=== PATIENT | male | born 1985 | race Caucasian/White ===

== ENCOUNTER 2020-07-01 01:47 | Emergency (ER) | payer OTHER, SELFPAY ==
[2020-06-30 23:51] VITALS: BP 144/100; PULSE 78; RESP 18; TEMP 36.3; O2SAT 99
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
--- NOTE | ~2020-07-01 | CT_ITS ---
EXAMINATION: CT brain wo con DATE: 07/01/2020 01:49 INDICATION: Head injury. TECHNIQUE: Computed tomography (CT) of the head was performed without intravenous contrast. The mA wa s adjusted according to patient size. Iterative reconstruction technique was employed. The dose-lengt h product was 681.00 mGy-cm. COMPARISON: Head CT 08/31/2012 FINDINGS: There is no intracranial hemorrhage, acute infarction, or abnormal intracranial mass lesion . The ventricles are normal in size. The orbits are normal. There is mild mucosal thickening in the e thmoid sinuses. The mastoid air cells are normal. IMPRESSION: 1. Normal brain. Reviewed, dictated and finalized at location A. IMPRESSION: 1. Normal brain.
[2020-07-01] MEDS: KETOROLAC 30 MG/ML VIAL (*BKC) 60 MG IM (02:14)
[2020-07-01 02:20] VITALS: BP 149/105; PULSE 65; RESP 16; O2SAT 97
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
[2020-07-01 03:26] VITALS: BP 140/100; PULSE 65; RESP 16; O2SAT 97
== END 2020-07-01 03:27 | disposition home or self-care (01) ==
PROVIDERS: Emergency Provider Emergency Medicine; PCP Family Medicine
DX: S09.90XA Unspecified injury of head, initial encounter (principal); S16.1XXA Strain of muscle, fascia and tendon at neck level, initial encounter; Z87.891 Personal history of nicotine dependence; V47.5XXA Car driver injured in collision with fixed or stationary object in traffic accident, initial encounter
CPT/HCPCS: 70450; 72125; 96372; 99284; J1885

== ENCOUNTER 2021-10-08 07:07 | Emergency (ER) | payer OTHER, SELFPAY ==
--- NOTE | ~2021-10-08 | CT_ITS ---
EXAMINATION: CT brain wo con DATE: 10/08/2021 08:27 INDICATION: Light sensitivity. Headache and dizziness. TECHNIQUE: Computed tomography (CT) of the head was performed without intravenous contrast. The mA wa s adjusted according to patient size. Iterative reconstruction technique was employed. Exam dose: 60 5.33 mGy-cm total exam DLP. COMPARISON: 06/27/2020 CT brain FINDINGS: No intracranial mass lesion or hemorrhage or cerebrovascular accident. No midline shift or mass effect. Normal ventricular size. Normal mann-white matter differentiation. No subdural or epidur al hematoma is detected. No fracture or bone destruction of the cranial vault. There is a bony septum at the posterior aspect of the right maxillary sinus. There is minimal mucoper iosteal thickening of some of the ethmoid air cells. The mastoid air cells and included paranasal sinuses are otherwise unremarkable. IMPRESSION: No intracranial abnormality Reviewed, dictated and finalized at [facility]. Reviewed, dictated and finalized at location B. IMPRESSION: No intracranial abnormality
--- NOTE | ~2021-10-08 | XR_ITS ---
EXAMINATION: XR chest 1V portable DATE: 10/08/2021 08:49 INDICATION: Shortness of breath. TECHNIQUE: A single frontal view of the chest was obtained on 2 radiographs. COMPARISON: Chest 2 views 02/10/2018 FINDINGS: There is no pneumonia, pleural effusion, or pneumothorax. The heart size is normal. IMPRESSION: 1. No acute cardiopulmonary disease. Reviewed, dictated and finalized at location A.
[2021-10-08 07:11] VITALS: BP 175/89; PULSE 93; RESP 24; TEMP 36.7; O2SAT 100
--- NOTE | 2021-10-08 07:38 | ECG_ITS ---
Measurements Intervals [place] Rate: 77 P: 44 OK: 188 QRS: 2 QRSD: 122 T: 21 QT: 332 QTc: 376 Interpretive Statements SINUS RHYTHM NONSPECIFIC INTRAVENTRICULAR CONDUCTION DELAY [110+ ms QRS DURATION] BORDERLINE ECG NO PREVIOUS ECG AVAILABLE FOR COMPARISON Electronically Signed On 10-08-2021 14:10:05 CDT by Juan José Sethi M.D.
--- NOTE | 2021-10-08 08:07 | ED.HA ---
HPI - Headache General Chief Complaint: Headache Stated Complaint: dizzy, sob Time Seen by Provider: 10/08/21 08:06 History of Present Illness HPI Narrative: here at work felt lt headed and dizzy and stokes and bp up says h/o this with over exertion and had checked before, says stopped his propranolol around 3 months or so b/c says made him tired with is other meds for psyche his doc didn't tell him to stop no other cp/sob/f/uri/n/v/d but has gerd causes coughing fits adn had that last night. says all similar to previous issues no neuro chagnes Related Data Allergies Allergy/AdvReac Type Severity Reaction Status Date / Time No Known Allergies Allergy Verified 10/08/21 07:14 Review of Systems Constitutional: Comments: CONSTITUTIONAL: Denies fever, chills, or sweats. EYES: Denies visual changes, redness, or discharge. ENT: Denies rhinorrhea, congestion, sore throat, or otalgia. CARDIOVASCULAR: Denies chest pain, palpitations, or edema. RESPIRATORY: Denies cough or dyspnea. GASTROINTESTINAL: Denies abdominal pain, nausea, vomiting, or diarrhea. GENITOURINARY: Denies dysuria or hematuria. SKIN: Denies rash or itching. MUSCULOSKELETAL: Denies back pain, joint pain, or myalgia. NEUROLOGIC: has headache, no numbness, or weakness. bu dizzy and lt headed PSYCHIATRIC: Denies anxiety or depression. [facility] Family History Family History Father Family history of mental disorder Hypertension Family history of osteoarthritis Family history of elevated blood lipids Family history of cardiovascular disease Family history of hypothyroidism Grandparent Depression Hypertension Family history of elevated blood lipids Family history of cardiovascular disease Family history of liver disease Family history of arthritis Family history of chronic obstructive pulmonary disease Mother Hypertension Social History Social History Smoking status: Former smoker Alcohol intake: never Exam Const: Other: APPEARANCE: Well appearing, no pain in distress, well-nourished.obese EYES: PERRLA/EOMI, conjunctivae very clear. no nystagmus NOSE: Normal no drainage EARS:TMS clear Becky Siddiqui, with good light reflex. THROAT: Pharynx clear, no exudate. NECK: Supple. No adenopathy, no masses. RESPIRATORY: Airway patent, repsirations nonlabored. Clear to auscultation bilaterally, no rales, rhonchi, wheezing. CARDIOVASCULAR: Regular rate and rhythm without murmurs rubs or gallops. ABDOMINAL: Soft, nontender, nondistended, no hepatosplenomegally MUSCULOSKELETAl: Moves all extremities. Strenght/ROM intact, No edema, No calf tenderness. NEURO: Alert. Cranial nerves II through XII intact. Good gait. Good coordination SKIN:: Warm, dry. Normal Color PSYCHIATRIC: Normal affect/mood, normal interaction with parents. Course Reevaluation(s) Reevaluation #1: pt stokes better feeling fine good wiht plan for bp med and home, called dr tabares at 1000 to talk with him about pt stopping previous medication and wanting new suggestion he would recommend amlodipine and says his office will call pt for f/u appt Vital Signs Vital signs: Vital Signs Temperature 36.7 C 10/08/21 07:11 Pulse Rate 93 10/08/21 07:11 Respiratory Rate 24 H 10/08/21 07:11 Blood Pressure 175/89 H 10/08/21 07:11 Pulse Oximetry 100 10/08/21 07:11 Oxygen Delivery Room Air 10/08/21 07:11 Temperature 36.7 C 10/08/21 07:11 Pulse Rate 68 10/08/21 10:21 Respiratory Rate 17 10/08/21 10:21 Blood Pressure 142/96 H 10/08/21 09:00 Pulse Oximetry 92 10/08/21 10:21 Oxygen Delivery Room Air 10/08/21 07:11 MDM - Headache Lab Data Result diagrams: 10/08/21 08:21 10/08/21 08:21 Labs: Lab Results 10/08/21 10/08/21 10/08/21 Range/Units 08:21 08:21 08:21 WBC 9.7 (4.5-10.0) K/mm3 RBC 4.68 (4.6-6.20) M/mm3 Hgb 13.6 L
[2021-10-08 08:25] VITALS: BP 151/82; PULSE 74
[2021-10-08 08:26] VITALS: BP 157/100; BP 162/104; PULSE 79; PULSE 88
[2021-10-08 08:28] LABS: Basophils Percent Auto 0.3 % (0.2-1.2); Eosinophils Absolute Auto 0.2 K/mm3 (0-0.3); Eosinophils Percent Auto 1.6 % (0-4.4); Hemoglobin 13.6 g/dL (14.0-18.0); Immature Granulocyte Absolute 0.02 K/mm3 (0.00-0.031); Immature Granulocyte Percent A 0.2 % (0-0.5); Lymphocytes Percent Auto 19.7 % (18.3-44.2); Mean Corpuscular HGB Conc 31.6 g/dl (32-36); Mean Corpuscular Hemoglobin 29.1 pg (26-34); Mean Corpuscular Volume 91.9 fl (80-100); Mean Platelet Volume 10.9 fl (7.4-10.4); Monocytes Absolute Auto 0.8 K/mm3 (0.1-0.6); Monocytes Percent Auto 7.9 % (2.6-8.5); Neutrophils Absolute Auto 6.8 K/mm3 (1.3-6.7); Neutrophils Percent Auto 70.3 % (45.5-73.1); Platelet Count Result 242 k/mm3 (150-375); Red Blood Count 4.68 M/mm3 (4.6-6.20); Red Cell Distribution Width 12.3 % (11.5-14.5); White Blood Count 9.7 K/mm3 (4.5-10.0)
[2021-10-08 08:43] LABS: Alanine Aminotransferase 25 U/L (6-50); Albumin Level 4.2 g/dL (3.5-5.1); Alkaline Phosphatase 84 U/L (38-126); Anion Gap 8 mmol/L (8-16); Aspartate Amino Transferase 24 U/L (17-59); Bilirubin,Total 0.4 mg/dL (0.2-1.3); Blood Urea Nitrogen 18 mg/dL (9-20); Calcium 8.6 mg/dL (8.4-10.2); Carbon Dioxide 30 mmol/L (22-30); Chloride 101 mmol/L (98-107); Estimated CRCL calculation 188 ml/min; Estimated Glomerular Filt Rate > 60; Glucose 103 mg/dL (65-110); Potassium 4.3 mmol/L (3.4-5.0); Sodium 139 mmol/L (137-145)
[2021-10-08 08:44] LABS: INR 0.9; Prothrombin Time 12.2 Seconds (11.1-14.7)
[2021-10-08 08:45] LABS: Partial Thromboplastin Time 27.1 SECONDS (22.3-36.8)
[2021-10-08] MEDS: MORPHINE SULFATE (*CRX) 2 MG/ML INJ IV PUSH (08:52)
[2021-10-08] MEDS: ONDANSETRON INJ 4 MG/2 ML VIAL IV PUSH (08:52)
[2021-10-08 09:00] VITALS: BP 142/96; PULSE 75; RESP 18; O2SAT 95
[2021-10-08 10:21] VITALS: PULSE 68; RESP 17; O2SAT 92
[2021-10-08 10:25] LABS: Troponin I < 0.012 ng/mL (0.000-0.034)
[2021-10-08 10:41] VITALS: BP 132/84; PULSE 74; RESP 18; O2SAT 98
== END 2021-10-08 10:42 | disposition home or self-care (01) ==
PROVIDERS: Emergency Provider Emergency Medicine; PCP Family Medicine
DX: I10 Essential (primary) hypertension (principal); R51.9 Headache, unspecified; Z87.891 Personal history of nicotine dependence
CPT/HCPCS: 36415; 70450; 71045; 80053; 84484; 85025; 85610; 85730; 93005; 96374; 96375; 99284; J2270; J2405

== ENCOUNTER 2022-01-18 15:59 | Outpatient (CLI) | payer OTHER, SELFPAY ==
[2022-01-18 16:28] LABS: Anion Gap 13 mmol/L (8-16); Blood Urea Nitrogen 18 mg/dL (9-20); Calcium 8.6 mg/dL (8.4-10.2); Carbon Dioxide 28 mmol/L (22-30); Chloride 101 mmol/L (98-107); Cholesterol 158 mg/dL (0-200); Estimated Glomerular Filt Rate > 60; Glucose 119 mg/dL (65-110); HDL Direct 40 mg/dL; Potassium 4.2 mmol/L (3.4-5.0); Sodium 142 mmol/L (137-145); Triglycerides 111 mg/dL (<150)
[2022-01-18 16:31] LABS: Basophils Percent Auto 0.4 % (0.2-1.2); Eosinophils Absolute Auto 0.2 K/mm3 (0-0.3); Eosinophils Percent Auto 2.3 % (0-4.4); Hematocrit 42.5 % (42.0-52.0); Hemoglobin 13.4 g/dL (14.0-18.0); Immature Granulocyte Absolute 0.03 K/mm3 (0.00-0.031); Immature Granulocyte Percent A 0.3 % (0-0.5); Lymphocytes Absolute Auto 2.51 K/mm3 (0.9-3.2); Lymphocytes Percent Auto 25.9 % (18.3-44.2); Mean Corpuscular HGB Conc 31.5 g/dl (32-36); Mean Corpuscular Hemoglobin 28.6 pg (26-34); Mean Corpuscular Volume 90.8 fl (80-100); Monocytes Absolute Auto 1.2 K/mm3 (0.1-0.6); Monocytes Percent Auto 12.6 % (2.6-8.5); Neutrophils Absolute Auto 5.7 K/mm3 (1.3-6.7); Neutrophils Percent Auto 58.5 % (45.5-73.1); Platelet Count Result 269 k/mm3 (150-375); Red Blood Count 4.68 M/mm3 (4.6-6.20); Red Cell Distribution Width 12.5 % (11.5-14.5); White Blood Count 9.7 K/mm3 (4.5-10.0)
[2022-01-18 16:39] LABS: LDL Cholesterol Direct 81 mg/dL
[2022-01-18 16:40] LABS: Hemoglobin A1C 5.5 % (<5.7)
[2022-01-18 16:45] LABS: Free T4 Free Thyroxine 1.28 ng/mL (0.78-2.19)
[2022-01-18 16:58] LABS: Thyroid Stimulating Hormone 0.605 uIU/mL (0.465-4.680)
== END 2022-01-18 16:00 | disposition home or self-care (01) ==
PROVIDERS: PCP Family Medicine; Visit Provider Physician Assistant
DX: E66.01 Morbid (severe) obesity due to excess calories (principal); I10 Essential (primary) hypertension; R73.01 Impaired fasting glucose; Z79.899 Other long term (current) drug therapy; D64.9 Anemia, unspecified
CPT/HCPCS: 36415; 80048; 80061; 83036; 84439; 84443; 85025

== ENCOUNTER 2022-02-02 19:13 | Emergency (ER) | payer OTHER, SELFPAY ==
--- NOTE | ~2022-02-02 | XR_ITS ---
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 RESULT: Lines, tubes, and devices: None. Lungs and pleura: Clear. Cardiomediastinal silhouette: Stable. Other: No acute osseous or upper abdominal finding. IMPRESSION: No acute cardiopulmonary process. Reviewed, dictated and finalized at location K. 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
[2022-02-02 19:16] VITALS: BP 151/89; PULSE 94; RESP 16; TEMP 36.7; O2SAT 99
--- NOTE | 2022-02-02 20:35 | ED.URI ---
HPI - URI/Sore Throat General Chief Complaint: Upper Respiratory Infection Stated Complaint: cough Time Seen by Provider: 02/02/22 20:26 History of Present Illness HPI Narrative: Patient is a 36-year-old male with a history of hypertension, GERD presenting with URI symptoms. Patient states that he has had cold symptoms for the last 2 to 3 weeks. States that he has had a cough with a lot of nasal congestion. States that he often has a tickle in his throat. States that he has had an intermittent sore throat and has had a hoarse voice for the last several days. States that his and child also have URI symptoms. He denies chest pain, shortness of breath, headache, abdominal pain, nausea or vomiting, dysuria, leg swelling. Reports an episode of diarrhea earlier. Related Data Allergies Allergy/AdvReac Type Severity Reaction Status Date / Time No Known Allergies Allergy Verified 02/02/22 20:35 Review of Systems Review of Systems: All systems reviewed & are unremarkable except as noted in HPI and below PMFSH Family History Family History Father Family history of mental disorder Hypertension Family history of osteoarthritis Family history of elevated blood lipids Family history of cardiovascular disease Family history of hypothyroidism Grandparent Depression Hypertension Family history of elevated blood lipids Family history of cardiovascular disease Family history of liver disease Family history of arthritis Family history of chronic obstructive pulmonary disease Mother Hypertension Social History Social History Smoking status: Former smoker Alcohol intake: never Lack of Transportation: No Lack of Food: Never True Current Housing: I Have Housing Concerned About Future Housing: No Difficulty Paying Gas/Electric Bills: No Difficulty Paying for Meds: No Currently Unemployed: No Education: High School Diploma/GED Difficulty w/ Childcare or Family Care: No Exam Narrative: GENERAL: Well-appearing, well-nourished, and in no acute distress. HEAD: Normocephalic, atraumatic. EYES: PERRLA and EOMI. ENT: + Nasal congestion, no rhinorrhea or epistaxis. Mucous membranes moist. Posterior pharynx without erythema or exudates NECK: Supple. CHEST: Clear to auscultation. No respiratory distress. HEART: Regular rate and rhythm. No murmur heard. Normal peripheral pulses. ABDOMEN: Soft, nontender, nondistended, normal active bowel sounds. EXTREMITIES: Normal range of motion. No edema. SKIN: Warm, dry, no rash. NEURO: No focal deficits. Alert and oriented x3. PSYCH: Normal mood and affect. Course Vital Signs Vital signs: Vital Signs Temperature 98.0 F 02/02/22 19:16 Pulse Rate 94 02/02/22 19:16 Respiratory Rate 16 02/02/22 19:16 Blood Pressure 151/89 H 02/02/22 19:16 Pulse Oximetry 99 02/02/22 19:16 Temperature 98.0 F 02/02/22 19:16 Pulse Rate 94 02/02/22 19:16 Respiratory Rate 16 02/02/22 19:16 Blood Pressure 151/89 H 02/02/22 19:16 Pulse Oximetry 99 02/02/22 19:16 MDM - URI/Sore Throat MDM Narrative Medical decision making narrative: Patient is a 36-year-old male presenting with URI symptoms. Patient is hypertensive, otherwise vitals are within normal limits. Patient is well-appearing and in no acute distress. Exam is unremarkable. Will obtain chest x-ray and check him for COVID, flu, RSV. Chest x-ray shows no acute abnormalities. Patient is negative for COVID, flu, RSV. Patient likely has some other viral infection. Discussed appropriate supportive care. Will prescribe Tessalon Perles. Advised PCP follow-up. Appropriate return precautions given. Patient discharged in stable condition. Lab Data Labs: Lab Results 02/02/22 Range/Units 20:53 Influenza A (RT-PCR) Negative (Negative) Influenza B (RT-PCR) Negat
[2022-02-02 21:47] LABS: Influenza A QL RT-PCR Negative (Negative); Influenza B QL RT-PCR Negative (Negative); RSV RNA, RT-PCR Negative (Negative); SARS-CoV-2 RNA PCR Negative
[2022-02-02] MEDS: BENZONATATE 100 MG CAPSULE 200 MG PO (22:17)
== END 2022-02-02 22:23 | disposition home or self-care (01) ==
PROVIDERS: Emergency Provider Emergency Medicine; PCP Family Medicine
DX: B34.9 Viral infection, unspecified (principal); Z20.822 Contact with and (suspected) exposure to COVID-19; I10 Essential (primary) hypertension; K21.9 Gastro-esophageal reflux disease without esophagitis; Z87.891 Personal history of nicotine dependence
CPT/HCPCS: 71046; 87637; 99283; A9270

== ENCOUNTER 2022-05-27 08:28 | Emergency (ER) | payer OTHER, SELFPAY ==
--- NOTE | ~2022-05-27 | CT_ITS ---
EXAMINATION: CT abdomen pelvis wo con DATE: 05/27/2022 09:26 INDICATION: Fall. Right flank pain. Right hip and buttock pain, back pain. TECHNIQUE: Computed tomography (CT) of the abdomen and pelvis was performed without intravenous contr ast. Automated exposure control and iterative reconstruction technique were employed. Exam dose: 180 6.35 mGy-cm total exam DLP. COMPARISON: None. FINDINGS: There is minimal dependent right lower lobe atelectasis. The lung bases are otherwise clear . Normal heart size. No pericardial or pleural effusion. There is morbid obesity. The liver, gallbladder, spleen, pancreas, bile ducts and pancreatic duct, and adrenal glands and kidn eys are unremarkable. No urinary tract calculus or hydroureteronephrosis is detected. Normal caliber of the abdominal aorta. No intraperitoneal or retroperitoneal or pelvic mass lesion or adenopathy or ascites. Normal appendix. No bowel obstruction, bowel wall thickening, pneumatosis or intraperitoneal free air . The urinary bladder, prostate gland and seminal vesicles are unremarkable. Small fat-containing umbilical hernia. Small fat-containing left inguinal hernia. Bilateral L5 pars interarticularis defects with minimal grade 1 anterolisthesis of L5-S1. Moderate degenerative disease at L1-2. No suspicious osteolytic or osteoblastic lesions. IMPRESSION: Bilateral L5 pars interarticularis defects with grade 1 anterolisthesis at L5-S1 Reviewed, dictated and finalized at [facility]. Reviewed, dictated and finalized at location B. IMPRESSION: Bilateral L5 pars interarticularis defects with grade 1 anterolist hesis at L5-S1
[2022-05-27 08:34] VITALS: BP 155/91; PULSE 82; RESP 20; TEMP 36.3; O2SAT 97
--- NOTE | 2022-05-27 09:03 | ED.FALL ---
HPI - Fall General Chief Complaint: Fall Stated Complaint: fall - right side pain Time Seen by Provider: 05/27/22 08:43 History of Present Illness HPI Narrative: Patient states that he was at work when he fell back, landing mostly on his right side, he is endorsing pain worst on the right side, and worst around the right flank. Otherwise able to move all extremities and ambulate here. No focal numbness or weakness anywhere. Related Data Allergies Allergy/AdvReac Type Severity Reaction Status Date / Time No Known Allergies Allergy Verified 05/27/22 08:51 Review of Systems Review of Systems: CONST: No fever. HEENT: No sore throat C/V: No chest pain RESP: No cough GI: Reports right flank pain : No dysuria. M/S: Right shoulder, hip and leg pain. SKIN: No rash. NEURO: [No headache or focal numbness or weakness] PSYCH: [No depression] [facility] Family History Family History Father Family history of mental disorder Hypertension Family history of osteoarthritis Family history of elevated blood lipids Family history of cardiovascular disease Family history of hypothyroidism Grandparent Depression Hypertension Family history of elevated blood lipids Family history of cardiovascular disease Family history of liver disease Family history of arthritis Family history of chronic obstructive pulmonary disease Mother Hypertension Social History Social History Smoking status: Former smoker Alcohol intake: never Lack of Transportation: No Lack of Food: Never True Current Housing: I Have Housing Concerned About Future Housing: No Difficulty Paying Gas/Electric Bills: No Difficulty Paying for Meds: No Currently Unemployed: No Education: High School Diploma/GED Difficulty w/ Childcare or Family Care: No Exam Narrative: EXAMINATION OF ORGAN SYSTEMS/BODY AREAS: Constitutional: Vital signs per nursing GENERAL: Appears somewhat uncomfortable HEAD: Normal with no signs of head trauma. EYES: EOMI, conjunctiva normal ENT: Hearing grossly intact LUNGS: Nonlabored breathing. HEART: [Regular rate and rhythm] ABD: [Soft], [nontender to palpation] BACK: No midline tenderness, TTP R flank EXT: Normal range of motion, no obvious deformity SKIN: [No rashes or lesions.] NEURO: [Alert and oriented x 3. No gross focal sensory or strength deficits.] PSYCH: Normal affect Course Vital Signs Vital signs: Vital Signs Temperature 97.3 F L 05/27/22 08:34 Pulse Rate 82 05/27/22 08:34 Respiratory Rate 20 05/27/22 08:34 Blood Pressure 155/91 H 05/27/22 08:34 Pulse Oximetry 97 05/27/22 08:34 Oxygen Delivery Room Air 05/27/22 08:34 Temperature 97.3 F L 05/27/22 08:34 Pulse Rate 74 05/27/22 10:22 Respiratory Rate 18 05/27/22 10:22 Blood Pressure 132/89 05/27/22 10:22 Pulse Oximetry 98 05/27/22 10:22 Oxygen Delivery Room Air 05/27/22 08:34 MDM - Fall MDM Narrative Medical decision making narrative: 36-year-old male presenting after mechanical fall, endorsing pain to the right side, no obvious deformities or severe tenderness to any extremity, full range of motion. He does have tenderness to palpation to the right flank, but no midline tenderness. CT obtained to rule out fracture or intra abdominal injury. This is negative for acute abnormality, however he does have pars defect noted, I discussed this with the patient and I will give him follow-up to spine surgery, return precautions provided Discharge Plan Discharge Clinical Impression: Fall, Back pain Patient Disposition: Home, Self-Care Condition: Stable Instructions: Antibiotic Form Additional Instructions: Please follow up with your doctor; you can also take tylenol at home for pain and you can always come back to the ER if you feel worse. Prescriptions: No Action blayne
[2022-05-27] MEDS: ACETAMINOPHEN 500 MG TABLET 1000 MG PO (09:31)
[2022-05-27 09:59] VITALS: BP 129/87; PULSE 73; RESP 18; O2SAT 98
[2022-05-27 10:22] VITALS: BP 132/89; PULSE 74; RESP 18; O2SAT 98
== END 2022-05-27 10:24 | disposition home or self-care (01) ==
PROVIDERS: Emergency Provider Emergency Medicine; PCP Family Medicine
DX: M54.50 Low back pain, unspecified (principal); W19.XXXA Unspecified fall, initial encounter
CPT/HCPCS: 74176; 99284; A9270

== ENCOUNTER 2022-05-28 14:36 | Outpatient (CLI) | payer OTHER, SELFPAY ==
[2022-05-28 14:57] LABS: Basophils Percent Auto 0.4 % (0.2-1.2); Eosinophils Absolute Auto 0.2 K/mm3 (0-0.3); Eosinophils Percent Auto 1.9 % (0-4.4); Hematocrit 40.7 % (42.0-52.0); Hemoglobin 13.1 g/dL (14.0-18.0); Immature Granulocyte Absolute 0.03 K/mm3 (0.00-0.031); Immature Granulocyte Percent A 0.3 % (0-0.5); Lymphocytes Absolute Auto 2.09 K/mm3 (0.9-3.2); Lymphocytes Percent Auto 22.9 % (18.3-44.2); Mean Corpuscular HGB Conc 32.2 g/dl (32-36); Mean Corpuscular Hemoglobin 29.2 pg (26-34); Mean Corpuscular Volume 90.6 fl (80-100); Mean Platelet Volume 10.9 fl (7.4-10.4); Monocytes Absolute Auto 0.8 K/mm3 (0.1-0.6); Monocytes Percent Auto 8.4 % (2.6-8.5); Neutrophils Percent Auto 66.1 % (45.5-73.1); Platelet Count Result 235 k/mm3 (150-375); Red Blood Count 4.49 M/mm3 (4.6-6.20); Red Cell Distribution Width 12.1 % (11.5-14.5); White Blood Count 9.1 K/mm3 (4.5-10.0)
[2022-05-28 15:31] LABS: Iron 52 ug/dL (49-181)
[2022-05-28 15:41] LABS: Percent Iron Saturation 17 % (20-50)
== END 2022-05-28 14:37 | disposition home or self-care (01) ==
PROVIDERS: PCP Family Medicine; Visit Provider Physician Assistant
DX: D64.9 Anemia, unspecified (principal)
CPT/HCPCS: 36415; 82728; 83540; 83550; 85025

== ENCOUNTER 2023-03-06 06:56 | Outpatient (CLI) | payer OTHER, SELFPAY ==
[2023-03-06 07:33] LABS: Basophils Percent Auto 0.4 % (0.2-1.2); Eosinophils Absolute Auto 0.2 K/mm3 (0-0.3); Eosinophils Percent Auto 1.8 % (0-4.4); Hematocrit 45.9 % (42.0-52.0); Hemoglobin 14.7 g/dL (14.0-18.0); Immature Granulocyte Absolute 0.02 K/mm3 (0.00-0.031); Immature Granulocyte Percent A 0.2 % (0-0.5); Lymphocytes Absolute Auto 1.91 K/mm3 (0.9-3.2); Lymphocytes Percent Auto 20.7 % (18.3-44.2); Mean Corpuscular Hemoglobin 29.8 pg (26-34); Mean Corpuscular Volume 93.1 fl (80-100); Mean Platelet Volume 10.8 fl (7.4-10.4); Monocytes Absolute Auto 0.8 K/mm3 (0.1-0.6); Monocytes Percent Auto 8.1 % (2.6-8.5); Neutrophils Absolute Auto 6.3 K/mm3 (1.3-6.7); Neutrophils Percent Auto 68.8 % (45.5-73.1); Platelet Count Result 255 k/mm3 (150-375); Red Blood Count 4.93 M/mm3 (4.6-6.20); Red Cell Distribution Width 11.9 % (11.5-14.5); White Blood Count 9.2 K/mm3 (4.5-10.0)
[2023-03-06 07:45] LABS: Alanine Aminotransferase 25 U/L (6-50); Albumin Level 4.1 g/dL (3.5-5.1); Alkaline Phosphatase 81 U/L (38-126); Anion Gap 7 mmol/L (8-16); Aspartate Amino Transferase 22 U/L (17-59); Bilirubin,Total 0.5 mg/dL (0.2-1.3); Blood Urea Nitrogen 23 mg/dL (9-20); Calcium 9.1 mg/dL (8.4-10.2); Carbon Dioxide 29 mmol/L (22-30); Chloride 102 mmol/L (98-107); Cholesterol 152 mg/dL (0-200); Estimated Glomerular Filt Rate > 60; Glucose 100 mg/dL (65-110); HDL Direct 44 mg/dL; Potassium 4.7 mmol/L (3.4-5.0); Sodium 138 mmol/L (137-145); Triglycerides 82 mg/dL (<150)
[2023-03-06 07:55] LABS: LDL Cholesterol Direct 78 mg/dL
[2023-03-06 07:59] LABS: Iron 71 ug/dL (49-181)
[2023-03-06 08:08] LABS: Percent Iron Saturation 24 % (20-50)
[2023-03-06 10:53] LABS: Hemoglobin A1C 5.4 % (<5.7)
== END 2023-03-06 06:57 | disposition home or self-care (01) ==
LOC: ANHLAB 06:58
PROVIDERS: PCP Family Medicine; Visit Provider Physician Assistant
DX: D64.9 Anemia, unspecified (principal); E66.01 Morbid (severe) obesity due to excess calories; I10 Essential (primary) hypertension; K21.9 Gastro-esophageal reflux disease without esophagitis; R73.01 Impaired fasting glucose; F90.9 Attention-deficit hyperactivity disorder, unspecified type
CPT/HCPCS: 36415; 80053; 80061; 82728; 83036; 83540; 83550; 84443; 85025

== ENCOUNTER 2023-03-25 12:44 | Emergency (ER) | payer OTHER, SELFPAY ==
[2023-03-25 12:44] VITALS: BP 146/96; PULSE 83; RESP 20; TEMP 36.6; O2SAT 97
--- NOTE | 2023-03-25 12:54 | ED.URI ---
HPI - URI/Sore Throat General Chief Complaint: Upper Respiratory Infection Stated Complaint: covid + Time Seen by Provider: 03/25/23 12:49 History of Present Illness HPI Narrative: Pt here with son. Pt has runny nose, JORDAN, cough and aches. Pt covid test at home positive and wanted to verify. Pt denies fever. Related Data Allergies Allergy/AdvReac Type Severity Reaction Status Date / Time No Known Allergies Allergy Verified 01/21/23 13:25 Review of Systems Review of Systems: All systems reviewed & are unremarkable except as noted in HPI and below PMFSH Family History Family History Father Family history of mental disorder Hypertension Family history of osteoarthritis Family history of elevated blood lipids Family history of cardiovascular disease Family history of hypothyroidism Grandparent Depression Hypertension Family history of elevated blood lipids Family history of cardiovascular disease Family history of liver disease Family history of arthritis Family history of chronic obstructive pulmonary disease Mother Hypertension Social History Social History Smoking status: Former smoker Alcohol intake: never Lack of Transportation: No Lack of Food: Never True Current Housing: I Have Housing Concerned About Future Housing: No Difficulty Paying Gas/Electric Bills: No Difficulty Paying for Meds: No Currently Unemployed: No Education: High School Diploma/GED Difficulty w/ Childcare or Family Care: No Exam Const: General: healthy appearing and no acute distress Orientation/consciousness: patient oriented x3 Limitations: no limitations HENMT: Face/Nose/Sinus: Nasal discharge present Mouth: Yes Normal oral and palatal mucosa present Eyes: Pupils: Equal, round and reactive pupils present EOM: EOMs intact bilaterally Neck: Neck: normal visual inspection, no lymphadenopathy and no meningeal signs Resp: Effort & Inspection: normal respiratory effort Auscultation: clear to auscultation bilaterally Cardio: Rate: regular rate Rhythm: regular rhythm GI: GI Palp: Yes Soft to palpation Skin: General skin exam: normal color Wounds: no wounds Neuro: General: patient oriented x3, moves all extremities, no meningeal signs and no focal motor deficits Speech: normal speech Extrem: General: normal to inspection and no clubbing, cyanosis or edema Psych: Mental Status: mental status grossly normal Affect: normal affect Attitude: cooperative Course Vital Signs Vital signs: Vital Signs Temperature 97.9 F 03/25/23 12:44 Pulse Rate 83 03/25/23 12:44 Respiratory Rate 20 03/25/23 12:44 Blood Pressure 146/96 H 03/25/23 12:44 Pulse Oximetry 97 03/25/23 12:44 Oxygen Delivery Room Air 03/25/23 12:44 Temperature 97.9 F 03/25/23 13:45 Pulse Rate 83 03/25/23 13:45 Respiratory Rate 20 03/25/23 13:45 Blood Pressure 146/96 H 03/25/23 13:45 Pulse Oximetry 97 03/25/23 13:45 Oxygen Delivery Room Air 03/25/23 13:45 MDM - URI/Sore Throat Lab Data Labs: Lab Results 03/25/23 Range/Units 12:50 Influenza A (RT-PCR) Negative (Negative) Influenza B (RT-PCR) Negative (Negative) SARS-CoV-2 RNA (RT-PCR) Positive A (Negative) Discharge Plan Discharge Clinical Impression: COVID Patient Disposition: Home, Self-Care Condition: Stable Instructions: Antibiotic Form, COVID-19 (Coronavirus Disease 2019) (ED) Prescriptions: No Action methylphenidate HCl 27 mg tablet extended release 24hr 27 mg PO QAM Qty: 30 0RF Rx Instructions: January methylphenidate HCl 27 mg tablet extended release 24hr 27 mg PO QAM Qty: 30 0RF Rx Instructions: February methylphenidate HCl 27 mg tablet extended release 24hr 27 mg PO QAM Qty: 30 0RF Rx Instructions: March losartan 25 mg tab
[2023-03-25 13:32] LABS: SARS-CoV-2 RNA PCR Positive (Negative)
[2023-03-25 13:34] LABS: Influenza A QL RT-PCR Negative (Negative); Influenza B QL RT-PCR Negative (Negative)
[2023-03-25 13:45] VITALS: BP 146/96; PULSE 83; RESP 20; TEMP 36.6; O2SAT 97
== END 2023-03-25 13:45 | disposition home or self-care (01) ==
PROVIDERS: Emergency Provider Emergency Medicine; PCP Family Medicine
DX: U07.1 COVID-19 (principal); Z87.891 Personal history of nicotine dependence
CPT/HCPCS: 87636; 99283

== ENCOUNTER 2023-05-24 11:35 | Emergency (ER) | payer OTHER, SELFPAY ==
--- NOTE | ~2023-05-24 | CT_ITS ---
EXAMINATION: CT soft tissue neck w con DATE: 05/24/2023 13:24 INDICATION: Pain and swelling over the right ankle of the mandible TECHNIQUE: Computed tomography (CT) of the neck was performed with 75 mL Omnipaque-350 intravenous co ntrast. Automated exposure control and iterative reconstruction technique were employed. The dose-lucina gth product was 659.08 mGy-cm. COMPARISON: None FINDINGS: Orbits are normal. Visualized sinuses and mastoid aircells are well aerated and clear. Submandibular and parotid glands are symmetric. Thyroid gland is unremarkable. A couple enlarged level 2 jugular ch ain lymph nodes measuring 1.2 cm in maximal short axis diameter on the left and 1.6 cm on the right. Remaining cervical lymph nodes are unremarkable. No masses identified. Dystrophic calcification at t he right palatine tonsil. The vasculature is patent and normal in caliber. Airway is unremarkable. Gonzalez perior mediastinum is unremarkable. Lung apices are normal. IMPRESSION: 1. Normal appearing symmetric parotid glands at the region of concern. No other abnormal masses or fl uid collections identified. 2. Nonspecific bilateral mildly enlarged level 2 jugular chain lymph nodes measure up to 1.2 cm in sh ort axis diameter on the left and 1.6 cm on the right. Reviewed, dictated and finalized at location A. IMPRESSION: 1. Normal appearing symmetric parotid glands at the region of concern. No other abnormal masses or fluid collections identified. 2. Nonspecific bilateral mildly enlarged level 2 jugular chain lymph nodes daron ure up to 1.2 cm in short axis diameter on the left and 1.6 cm on the right.
[2023-05-24 11:43] VITALS: BP 160/101; PULSE 85; RESP 20; TEMP 37; O2SAT 98
--- NOTE | 2023-05-24 12:04 | ED.GENADULT ---
HPI - General Adult General Chief complaint: Unspecified Stated complaint: Right Facial Swelling Time Seen by Provider: 05/24/23 11:57 History of Present Illness HPI narrative: Patient is a 37 year old male with no PMH here with right sided facial swelling. Patient notes that 1 hour ago he was eating a rice crispy treat when he felt a sharp pain in his right lower jaw. He notes the pain subsided and he proceeded to eat a slim elder afterward without any issues. He has noted progressive swelling behind the angle of his mandible over the last hour. He denies difficulty breathing or swallowing. He denies any cracked teeth or dental pain. Patient does note that he has been struggling with respiratory illness over the last 2 weeks, the majority of the symptoms have resolved and he has a mild persistent sore throat which seems to be worsened when he cough. No fever or chills. Related Data Allergies Allergy/AdvReac Type Severity Reaction Status Date / Time No Known Allergies Allergy Verified 05/24/23 11:45 Review of Systems Review of Systems: All systems reviewed & are unremarkable except as noted in HPI and below PMFSH Family History Family History (Reviewed 01/21/23 @ 13:28 by Zuleima Mckeon [facility]) Father Family history of mental disorder Hypertension Family history of osteoarthritis Family history of elevated blood lipids Family history of cardiovascular disease Family history of hypothyroidism Grandparent Depression Hypertension Family history of elevated blood lipids Family history of cardiovascular disease Family history of liver disease Family history of arthritis Family history of chronic obstructive pulmonary disease Mother Hypertension Social History Social History (Reviewed 01/21/23 @ 13:28 by Zuleima Mckeon [facility]) Smoking status: Former smoker Alcohol intake: never Lack of Transportation: No Lack of Food: Never True Current Housing: I Have Housing Concerned About Future Housing: No Difficulty Paying Gas/Electric Bills: No Difficulty Paying for Meds: No Currently Unemployed: No Education: High School Diploma/GED Difficulty w/ Childcare or Family Care: No Exam Narrative: GENERAL: Well-appearing, well-nourished, and in no acute distress. HEAD: Normocephalic, atraumatic. EYES: PERRLA and EOMI. ENT: Nares clear. Mucous membranes moist. No posterior pharyngeal erythema, edema, exudates. No obvious dental fractures or dental caries, no dental abscesses. He has isolated swelling over the angle of the mandible, no overlying erythema or skin changes. Minimally tender to touch. No tenderness over the mastoid process. Auditory canal and TM normal bilaterally. No stridor. NECK: Supple. No lymphadenopathy. CHEST: Clear to auscultation. No respiratory distress. HEART: Regular rate and rhythm. Normal peripheral pulses. ABDOMEN: Soft, nontender, nondistended. EXTREMITIES: Normal range of motion. No edema. SKIN: Warm, dry, no rash. NEURO: No focal deficits. Alert and oriented x3. PSYCH: Normal mood and affect. Course Course Emergency Course: Chart review performed. Here with swelling below right ear. Triage vitals show HTN, otherwise normal. Patient seen evaluated, nontoxic appearing. He has some isolated swelling over the angle of mandible. Differentials include parotiditis, sialadenitis, less likely strep pharyngitis, dental caries, deep space infection. Will do basic labs, amylase, CT soft tissue neck. Patient agreeable to workup and plan. WBC elevated at 11.1, electrolytes normal, normal renal function, CRP minimally elevated at 1.5. Amylase elevated at 247. Pending CT and swabs. COVID, influenza, ICU negative. Positive for strep. CT shows lymphadenopathy, no obvious parotitis. Given elevated amylase, focal swelling will broaden antibiotic coverage with augmentin, which can cover both possible parotitis and strep. Lab work and imaging reviewed with patient. Advised close
[2023-05-24 12:12] VITALS: RESP 20
[2023-05-24 12:43] LABS: Basophils Percent Auto 0.4 % (0.2-1.2); Eosinophils Absolute Auto 0.2 K/mm3 (0-0.3); Eosinophils Percent Auto 1.4 % (0-4.4); Hematocrit 42.3 % (42.0-52.0); Hemoglobin 13.5 g/dL (14.0-18.0); Immature Granulocyte Absolute 0.04 K/mm3 (0.00-0.031); Immature Granulocyte Percent A 0.4 % (0-0.5); Lymphocytes Absolute Auto 2.41 K/mm3 (0.9-3.2); Lymphocytes Percent Auto 21.7 % (18.3-44.2); Mean Corpuscular HGB Conc 31.9 g/dl (32-36); Mean Corpuscular Hemoglobin 29.5 pg (26-34); Mean Corpuscular Volume 92.4 fl (80-100); Monocytes Absolute Auto 0.8 K/mm3 (0.1-0.6); Monocytes Percent Auto 7.6 % (2.6-8.5); Neutrophils Absolute Auto 7.6 K/mm3 (1.3-6.7); Neutrophils Percent Auto 68.5 % (45.5-73.1); Platelet Count Result 237 k/mm3 (150-375); Red Blood Count 4.58 M/mm3 (4.6-6.20); White Blood Count 11.1 K/mm3 (4.5-10.0)
[2023-05-24 12:58] LABS: Alanine Aminotransferase 24 U/L (6-50); Alkaline Phosphatase 81 U/L (38-126); Amylase 247 U/L (30-110); Anion Gap 4 mmol/L (8-16); Aspartate Amino Transferase 22 U/L (17-59); Bilirubin,Total 0.5 mg/dL (0.2-1.3); Blood Urea Nitrogen 16 mg/dL (9-20); CRP 1.5 mg/dL (<1.0); Carbon Dioxide 31 mmol/L (22-30); Chloride 102 mmol/L (98-107); Estimated CRCL calculation 165 ml/min; Estimated Glomerular Filt Rate > 60; Glucose 114 mg/dL (65-110); Potassium 3.9 mmol/L (3.4-5.0); Sodium 137 mmol/L (137-145)
[2023-05-24 13:05] LABS: Strep Group A RT-PCR DETECTED (Negative)
[2023-05-24 13:18] LABS: Influenza A QL RT-PCR Negative (Negative); Influenza B QL RT-PCR Negative (Negative); RSV RNA, RT-PCR Negative (Negative); SARS-CoV-2 RNA PCR Negative (Negative)
[2023-05-24] MEDS: AMOXICILLIN/CLAVULANATE K 875-125 MG TAB 1 TABLET PO (14:19)
[2023-05-24] MEDS: KETOROLAC 15 MG/ML VIAL (*BKC) IV PUSH (14:20)
[2023-05-24 14:25] VITALS: PULSE 91; RESP 19; O2SAT 100
== END 2023-05-24 14:27 | disposition home or self-care (01) ==
PROVIDERS: Emergency Provider Student in an Organized Health Care Education/Training Program; PCP Family Medicine
DX: R22.0 Localized swelling, mass and lump, head (principal); R74.8 Abnormal levels of other serum enzymes; Z20.822 Contact with and (suspected) exposure to COVID-19; Z87.891 Personal history of nicotine dependence
CPT/HCPCS: 36415; 70491; 80053; 82150; 85025; 86140; 87637; 87651; 96374; 99284; A9270; J1885; Q9967

== ENCOUNTER 2023-11-04 08:22 | Emergency (ER) | payer OTHER, SELFPAY ==
--- NOTE | ~2023-11-04 | CT_ITS ---
Non-contrast Head CT History: Headache COMPARISON: 10/08/2021 Technique: Axial non-contrast imaging of the brain was performed. Dose reduction technique was used on this scan by utilizing automated exposure control and iterative reconstruction technique. The dose -length product (DLP) was 605.33 mGy-cm. Findings: There is no evidence of intracranial hemorrhage, mass lesion, or acute infarct. Brain par enchyma appears normal. The ventricles and subarachnoid spaces are normal in size. The calvarium ap pears normal. The visualized paranasal sinuses and mastoid air cells are clear. Impression: No significant abnormality seen. Reviewed, dictated and finalized at location . Impression: No significant abnormality seen.
[2023-11-04 08:45] VITALS: BP 163/94; PULSE 78; RESP 18; TEMP 36.6; O2SAT 98
[2023-11-04 08:57] VITALS: BP 163/94; PULSE 71; RESP 15; O2SAT 99
[2023-11-04] MEDS: HYDROcodone/acetaminophen (*CRX) 5-325 MG TABLET 1 TAB PO (09:07)
--- NOTE | 2023-11-04 09:11 | ED.FALL ---
HPI - Fall General Chief Complaint: Fall Stated Complaint: fall last night, hit head JORDAN Time Seen by Provider: 11/04/23 08:43 History of Present Illness HPI Narrative: This is a 38-year-old male with no pertinent past medical history who presents to the emergency department with a chief complaint of a headache. Patient states he tripped and fell over a doctor yesterday and fell face 1st into a dresser. He is not sure if he lost consciousness but today woke up with a headache that is worsening and quality. Headache did not wake him up and is not the worst headache of his life. It is a dull ache and he does have a hematoma over his right frontal scalp. No active bleeding. Denies any nauseousness, vomiting, neck pain, vision changes, chest pain, shortness a breath, neuropathy, weakness or fatigue. He was otherwise in his normal state of health. No blood thinner use or history of seizure. Related Data Allergies Allergy/AdvReac Type Severity Reaction Status Date / Time No Known Allergies Allergy Verified 11/04/23 08:55 Review of Systems Review of Systems: As reviewed [facility] Family History Family History Father Family history of mental disorder Hypertension Family history of osteoarthritis Family history of elevated blood lipids Family history of cardiovascular disease Family history of hypothyroidism Grandparent Depression Hypertension Family history of elevated blood lipids Family history of cardiovascular disease Family history of liver disease Family history of arthritis Family history of chronic obstructive pulmonary disease Mother Hypertension Social History Social History Smoking status: Former smoker Alcohol intake: never Lack of Transportation: No Lack of Food: Never True Current Housing: I Have Housing Concerned About Future Housing: No Difficulty Paying Gas/Electric Bills: No Difficulty Paying for Meds: No Currently Unemployed: No Education: High School Diploma/GED Difficulty w/ Childcare or Family Care: No Exam Narrative: GENERAL: [Well-appearing, well-nourished, and in no acute distress.] HEAD: Normocephalic, right frontal scalp hematoma with no overlying bruising, approximately 2 x 3 cm EYES: [PERRLA and EOMI.] ENT: Nares clear, no rhinorrhea or epistaxis. Mucous membranes moist. NECK: Supple. Full range of motion of the head and neck, no midline or paraspinal muscle tenderness. CHEST: [Clear to auscultation. No respiratory distress.] HEART: [Regular rate and rhythm]. No murmur heard. [Normal peripheral pulses.] ABDOMEN: [Soft, nondistended], [nontender], [No rigidity or guarding] EXTREMITIES: Normal range of motion. [No edema.] SKIN: Warm, dry, no rash. NEURO: [No focal deficits]. Alert and oriented [x3.] PSYCH: [Normal mood and affect.] Course Vital Signs Vital signs: Vital Signs Temperature 36.6 C 11/04/23 08:45 Pulse Rate 78 11/04/23 08:45 Respiratory Rate 18 11/04/23 08:45 Blood Pressure 163/94 H 11/04/23 08:45 Pulse Oximetry 98 11/04/23 08:45 Oxygen Delivery Room Air 11/04/23 08:45 Temperature 36.6 C 11/04/23 08:45 Pulse Rate 62 11/04/23 10:06 Respiratory Rate 17 11/04/23 10:06 Blood Pressure 120/74 11/04/23 10:06 Pulse Oximetry 97 11/04/23 10:06 Oxygen Delivery Room Air 11/04/23 08:45 MDM - Fall MDM Narrative Medical decision making narrative: This is a 38-year-old male presenting after a closed head injury last night. He states he fell and tripped over a dog toy which was mechanical in nature and fell face 1st into a dresser. He has a small frontal scalp hematoma without any active bleeding or signs of skull fracture on exam. He has full range of motion of the head neck. No neurological complaints aside from a headache. Given his questionable loss of
[2023-11-04 10:06] VITALS: BP 120/74; PULSE 62; RESP 17; O2SAT 97
[2023-11-04 10:45] VITALS: BP 122/80; PULSE 68; RESP 15; TEMP 36.4; O2SAT 98
== END 2023-11-04 10:48 | disposition home or self-care (01) ==
PROVIDERS: Emergency Provider Student in an Organized Health Care Education/Training Program; PCP Family Medicine
DX: S06.0XAA Concussion with loss of consciousness status unknown, initial encounter (principal); Z87.891 Personal history of nicotine dependence; W01.0XXA Fall on same level from slipping, tripping and stumbling without subsequent striking against object, initial encounter
CPT/HCPCS: 70450; 99284; A9270

== ENCOUNTER 2023-12-26 22:13 | Emergency (ER) | payer OTHER, SELFPAY ==
--- NOTE | ~2023-12-26 | CT_ITS ---
CT brain wo con Ordering provider: Miguel Myers MD History: 38 years Male with . RIGHT FRONTAL HEADACHE X 2.5 HRS. . Comparison: November 04, 2023 Technique: CT of the head without contrast. Radiation reduction technique utilized.The dose-length product was 681 mGy-cm. FINDINGS: BRAIN PARENCHYMA AND CSF SPACES: No midline shift, mass effect or hemorrhage. The brain parenchyma a nd CSF spaces are otherwise normal. VISUALIZED PARANASAL SINUSES: Well aerated. MASTOIDS: Well aerated. BONES: The bones appear intact. SOFT TISSUES: Visualized nasopharynx is normal. Superficial soft tissues are normal. IMPRESSION: No acute intracranial findings. Reviewed, dictated and finalized at location A.
[2023-12-26 22:23] VITALS: BP 151/98; PULSE 71; RESP 18; TEMP 36.6; O2SAT 94
--- NOTE | 2023-12-26 23:07 | ED.HA ---
HPI - Headache General Chief Complaint: Headache Stated Complaint: headache Source: patient Mode of arrival: ambulatory Limitations: no limitations History of Present Illness HPI Narrative: Patient is 38 years old white male came to the ED by car with his from home complaining of right frontal headache while laying down watching TV started 2-1/2 hour ago, associated with clogged feeling at the right nostril, gets better when he blows his nose, worse when he move around. he denies any fever, chills, nausea, vomiting, chest pain, shortness of breath or neck pain. History of ADHD, GERD, left lower leg pain on gabapentin. He report that his nose was running early but not anymore right now. Related Data Allergies Allergy/AdvReac Type Severity Reaction Status Date / Time No Known Allergies Allergy Verified 11/04/23 08:55 Review of Systems Review of Systems: All systems reviewed & are unremarkable except as noted in HPI and below PMFSH Family History Family History Father Family history of mental disorder Hypertension Family history of osteoarthritis Family history of elevated blood lipids Family history of cardiovascular disease Family history of hypothyroidism Grandparent Depression Hypertension Family history of elevated blood lipids Family history of cardiovascular disease Family history of liver disease Family history of arthritis Family history of chronic obstructive pulmonary disease Mother Hypertension Social History Social History Smoking status: Former smoker Alcohol intake: never Lack of Transportation: No Lack of Food: Never True Current Housing: I Have Housing Concerned About Future Housing: No Difficulty Paying Gas/Electric Bills: No Difficulty Paying for Meds: No Currently Unemployed: No Education: High School Diploma/GED Difficulty w/ Childcare or Family Care: No Exam Narrative: General appearance: Well-developed, well-nourished , does not look in pain or distress Skin: Normal color Head: Normocephalic, nontraumatic Eyes: Clear conjunctiva ENT: Oropharynx normal, ears normal, nose normal Neck: Supple, nontender Chest and respiratory: Airway patent, no respiratory distress, no accessory muscle use Heart: Regular rate/rhythm Neurologic: Alert and oriented ?3, 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, no gross motor deficit Course Vital Signs Vital signs: Vital Signs Temperature 36.6 C 12/26/23 22:23 Pulse Rate 71 12/26/23 22:23 Respiratory Rate 18 12/26/23 22:23 Blood Pressure 151/98 H 12/26/23 22:23 Pulse Oximetry 94 12/26/23 22:23 Oxygen Delivery Room Air 12/26/23 22:23 Temperature 36.6 C 12/26/23 22:23 Pulse Rate 71 12/26/23 22:23 Respiratory Rate 18 12/26/23 22:23 Blood Pressure 172/85 H 12/27/23 00:09 Pulse Oximetry 94 12/26/23 22:23 Oxygen Delivery Room Air 12/26/23 22:23 MDM - Headache MDM Narrative Medical decision making narrative: patient came with right frontal headache while lying down watching TV, better with blowing his nose associated with upper respiratory viral infection symptoms. Vital signs are stable Physical examination is unremarkable, patient looks comfortable, talks nonstop. Differential diagnosis include upper respiratory viral infection, sinusitis, stress related, Blood workup today showed normal WBC, normal electrolytes, CT head without contrast showed no acute abnormalities. Patient symptom resolved after IV fluid, Toradol IV, Benadryl IV, Reglan IV and Tylenol p.o. The pt was discharged to home.
--- NOTE | 2023-12-26 23:16 | PC.NURSE ---
report to fabiola oliver. all questions answered.
[2023-12-26 23:32] LABS: Basophils Absolute Auto 0.04 K/mm3 (0.00-0.10); Basophils Percent Auto 0.4 % (0.0-1.0); Eosinophils Absolute Auto 0.14 K/mm3 (0.02-0.50); Eosinophils Percent Auto 1.5 % (1.0-6.0); Hematocrit 40.8 % (40.0-54.0); Hemoglobin 13.1 g/dL (14.0-18.0); Immature Granulocyte Absolute 0.03 K/mm3 (0.00-0.00); Immature Granulocyte Percent A 0.3 % (0.0-0.0); Lymphocytes Absolute Auto 1.87 K/mm3 (1.10-4.50); Mean Corpuscular HGB Conc 32.1 g/dL (32-36); Mean Corpuscular Hemoglobin 29.1 pg (27.0-31.0); Mean Corpuscular Volume 90.7 fL (78.0-102.0); Mean Platelet Volume 10.6 fl (8.7-11.0); Monocytes Absolute Auto 0.99 K/mm3 (0.10-0.90); Monocytes Percent Auto 10.6 % (2.0-11.0); Neutrophils Percent Auto 67.2 % (50.0-70.0); Platelet Count Result 213 K/mm3 (150-420); White Blood Count 9.4 K/mm3 (4.8-10.8)
[2023-12-26] MEDS: ACETAMINOPHEN 500 MG TABLET 1000 MG PO (23:40)
[2023-12-26 23:47] LABS: Alanine Aminotransferase 19 U/L (16-63); Albumin Level 3.3 g/dL (3.4-5.0); Alkaline Phosphatase 84 U/L (46-116); Anion Gap 8 mmol/L (4-12); Aspartate Amino Transferase 13 U/L (15-37); Bilirubin,Total 0.5 mg/dL (0.00-1.00); Blood Urea Nitrogen 25 mg/dL (7-18); Calcium 8.6 mg/dL (8.5-10.1); Carbon Dioxide 29 mmol/L (21-32); Chloride 103 mmol/L (98-108); Estimated CRCL calculation 164 ml/min; Estimated Glomerular Filt Rate > 60; Glucose 114 mg/dL (70-99); Osmolality Calculated 295 mOsm/kg (285-295); Potassium 4.1 mmol/L (3.5-5.1); Sodium 140 mmol/L (136-145); Total Protein 7.2 g/dL (6.4-8.2)
[2023-12-26] MEDS: diphenhydrAMINE HCl INJ 50 MG/ML VIAL IV PUSH (23:47)
[2023-12-26] MEDS: SODIUM CHLORIDE 0.9% IV 1,000 ML 999 ML IV CONT (23:47)
[2023-12-26] MEDS: METOCLOPRAMIDE HCL INJ 10 MG/2 ML VIAL IV PUSH (23:48)
[2023-12-26] MEDS: KETOROLAC 30 MG/ML VIAL (*BKC) IV PUSH (23:49)
[2023-12-27 00:08] LABS: Influenza A QL RT-PCR Negative (Negative); Influenza B QL RT-PCR Negative (Negative); RSV RNA, RT-PCR Negative (Negative); SARS-CoV-2 RNA PCR Negative (Negative)
[2023-12-27 00:09] VITALS: BP 172/85
[2023-12-27 00:44] VITALS: BP 128/88; PULSE 60; RESP 20; O2SAT 95
[2023-12-27 01:00] VITALS: BP 135/75; PULSE 68; RESP 20; TEMP 36.6; O2SAT 95
== END 2023-12-27 01:00 | disposition home or self-care (01) ==
PROVIDERS: Emergency Provider Emergency Medicine; PCP Family Medicine
DX: J06.9 Acute upper respiratory infection, unspecified (principal); R51.9 Headache, unspecified; B97.89 Other viral agents as the cause of diseases classified elsewhere; Z87.891 Personal history of nicotine dependence; Z20.822 Contact with and (suspected) exposure to COVID-19
CPT/HCPCS: 36415; 70450; 80053; 85025; 87637; 96361; 96374; 96375; 99284; J1200; J1885; J2765; J7030

== ENCOUNTER 2024-04-12 15:12 | Emergency (ER) | payer OTHER, SELFPAY ==
--- NOTE | ~2024-04-12 | XR_ITS ---
EXAM: XR knee RT 3V DATE: 04/12/2024 16:41 HISTORY: R knee pain without injury . COMPARISON: None available. FINDINGS: Normal mineralization. No fracture or dislocation. No lytic or blastic lesion. Mild medial joint space narrowing. Small-volume joint fluid. No erosion or periosteal change. Soft tissues withi n normal limits. IMPRESSION: No acute osseous finding in the right knee. Reviewed, dictated and finalized at location K. 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
[2024-04-12 15:47] VITALS: BP 138/83; PULSE 82; RESP 20; TEMP 36.4; O2SAT 99
--- NOTE | 2024-04-12 17:33 | ED_ITS ---
HPI - Extremity Injury (Lower) General Chief Complaint: Extremity Injury, Lower Stated Complaint: right knee pain Time Seen by Provider: 04/12/24 17:10 Source: patient Mode of arrival: ambulatory Limitations: no limitations History of Present Illness HPI Narrative: 38-year-old otherwise healthy here with the complaints of of right knee pain for past 3 days patient states that he woke up with severe pain. He denies any trauma. Patient states going down the stairs or up the stairs is extremely painful. Related Data Allergies Allergy/AdvReac Type Severity Reaction Status Date / Time No Known Allergies Allergy Verified 01/29/24 14:23 Review of Systems Review of Systems: All systems reviewed & are unremarkable except as noted in HPI and below Constitutional: Constitutional: Reports no additional constitutional co mplaints Eyes: Eyes: Reports no additional eye complaints ENT: Reports system reviewed and no additional complaints, except as documented Cardiovascular: Cardiovascular: Reports no additional cardiovascular complaints Respiratory: Respiratory: Reports no additional respiratory complaints Gastrointestinal: Gastrointestinal: Reports no additional gastrointestinal complaints Musculoskeletal: Musculoskeletal: Reports as per HPI Neurologic: Reports system reviewed and no additional complaints, except as documented [facility] Family History Family History Father Family history of mental disorder Hypertension Family history of osteoarthritis Family history of elevated blood lipids Family history of cardiovascular disease Family history of hypothyroidism Grandparent Depression Hypertension Family history of elevated blood lipids Family history of cardiovascular disease Family history of liver disease Family history of arthritis Family history of chronic obstructive pulmonary disease Mother Hypertension Social History Social History Smoking status: Former smoker Alcohol intake: never Lack of Transportation: No Lack of Food: Never True Current Housing: I Have Housing Concerned About Future Housing: No Difficulty Paying Gas/Electric Bills: No Difficulty Paying for Meds: No Currently Unemployed: No Education: High School Diploma/GED Difficulty w/ Childcare or Family Care: No Exam Narrative: GENERAL: Well-appearing, morbidly obese, and in no acute distress. HEAD: Normocephalic, atraumatic. EYES: PERRLA and EOMI. NECK: Supple. CHEST: Clear to auscultation. No respiratory distress. HEART: Regular rate and rhythm. No murmur heard. Normal peripheral pulses EXTREMITIES: Normal range of motion. No edema. Examination of the right knee shows no joint effusion or deformity. Painful ROM SKIN: Warm, dry, no rash. NEURO: No focal deficits. Alert and oriented x3. PSYCH: Normal mood and affect. Course Course Emergency Course: Inform patient about his x-ray findings. Recommended him to use knee immobilizer, continue naproxen, follow-up with orthopedic doctor on patient is Vital Signs Vital signs: Vital Signs Temperature 36.4 C L 04/12/24 15:47 Pulse Rate 82 04/12/24 15:47 Respiratory Rate 20 04/12/24 15:47 Blood Pressure 138/83 04/12/24 15:47 Pulse Oximetry 99 04/12/24 15:47 Temperature 36.4 C L 04/12/24 15:47 Pulse Rate 82 04/12/24 15:47 Respiratory Rate 20 04/12/24 15:47 Blood Pressure 138/83 04/12/24 15:47 Pulse Oximetry 99 04/12/24 15:47 MDM - Extremity Injury (Lower) Imaging Data Radiologist's impression: ITS Impressions Knee X-Ray 04/12/24 16:43 IMPRESSION: No acute osseous finding in the right knee. Discharge Plan Discharge Clinical Impression: Knee joint pain Qualifiers: Laterality: right Qualified Code(s): M25.561 - Pain in right knee Patient Disposition: Home, Self-Care Condition: Stable Instructions: Antibiotic Form Additional Instructions: Continue home medication, use the immobilizer when ambulating. Patient Language: Greek Prescriptions: No Action naproxen 500 mg tablet See Rx Instructions .ROUTE .COMPLEX Qty: 180 3RF Dose Instruction: Take 1 tablet by mouth twice daily as needed for pain Rx Instructions: Take 1 tablet by mouth twice daily as needed for pain pantoprazole 40 mg tablet,delayed release (DR/EC) 40 mg PO QAM Qty: 90 1RF gabapentin 100 mg capsule 100 mg PO BID Qty: 60 1RF Rx Instructions: start the first week once daily at bedtime methylphenidate HCl 27 mg tablet extended release 24hr 27 mg PO QAM Qty: 30 0RF Rx Instructions: February methylphenidate HCl 27 mg tablet extended release 24hr 27 mg PO QAM Qty: 30 0RF Rx Instructions: March methylphenidate HCl 27 mg tablet extended release 24hr 27 mg PO QAM Qty: 30 0RF Rx Instructions: January Follow-up/Referrals: Silvio Shell MD [Primary Care Provider] - Yomi Foote MD [Physician] - Time of Disposition: 17:38
== END 2024-04-12 17:56 | disposition home or self-care (01) ==
PROVIDERS: Emergency Provider Family Medicine; PCP Family Medicine
DX: M25.561 Pain in right knee (principal); Z87.891 Personal history of nicotine dependence
CPT/HCPCS: 73562; 99283

== ENCOUNTER 2024-05-07 07:43 | Outpatient (CLI) | payer OTHER, SELFPAY ==
--- NOTE | 2024-05-07 08:29 | PCCARD ---
CHANGED NUC MED TREADMILL STRESS TO NON WALKING LEXISCAN DUE TO TREADMILL WEIGHT LIMIT OF 350 LBS - PATIENT WS OVER THE WEIGHT LIMIT
== END 2024-05-07 07:44 | disposition home or self-care (01) ==
LOC: ANHCARD 07:44
PROVIDERS: PCP Family Medicine; Visit Provider Nurse Practitioner Family
DX: R06.02 Shortness of breath (principal); Z82.49 Family history of ischemic heart disease and other diseases of the circulatory system
CPT/HCPCS: 78452; 93017; A9502; J2785

== ENCOUNTER 2024-08-14 14:11 | Emergency (ER) | payer OTHER, SELFPAY ==
--- NOTE | 2024-08-14 14:25 | ED.GENADULT ---
HPI - General Adult General Chief complaint: Unspecified Stated complaint: facial pain Time Seen by Provider: 08/14/24 14:15 History of Present Illness HPI narrative: 38-year-old male with history of hypertension, KERVIN, obesity presents to emergency department with right-sided facial pain since 9:00 p.m. last night. Patient states he was sitting watching TV last night at 9:00 p.m. when he began having a pressure sensation to his right upper gums that radiated up into his cheek and over his maxillary sinus and beneath his cheek bone. He states the pain has been persistent throughout the day which prompted him to come to the ED. He states he has had similar symptoms in the past usually do not last this long. He actually went to his dentist a couple of weeks ago and had an x-ray performed was told his teeth look okay. He denies any fevers, difficulty breathing or swallowing, numbness or tingling to his face, trismus, otalgia, sore throat, fever, worsening pain with light sensation or touch. He does note some congestion to the right nostril. Denies injury or trauma. Related Data Allergies Allergy/AdvReac Type Severity Reaction Status Date / Time No Known Allergies Allergy Verified 08/14/24 14:15 Review of Systems Review of Systems: All systems reviewed & are unremarkable except as noted in HPI and below PMFSH Family History Family History Father Family history of mental disorder Hypertension Family history of osteoarthritis Family history of elevated blood lipids Family history of cardiovascular disease Family history of hypothyroidism Grandparent Depression Hypertension Family history of elevated blood lipids Family history of cardiovascular disease Family history of liver disease Family history of arthritis Family history of chronic obstructive pulmonary disease Mother Hypertension Social History Social History Smoking status: Former smoker Alcohol intake: never Lack of Transportation: No Lack of Food: Never True Current Housing: I Have Housing Concerned About Future Housing: No Difficulty Paying Gas/Electric Bills: No Difficulty Paying for Meds: No Currently Unemployed: No Education: High School Diploma/GED Difficulty w/ Childcare or Family Care: No Exam Narrative: GENERAL: Well-appearing, well-nourished, and in no acute distress. HEAD: Normocephalic, atraumatic. EYES: PERRLA and EOMI. ENT: Nares clear, no rhinorrhea or epistaxis. Mucous membranes moist. Fractured right upper molar with caries. No significant tenderness with palpation of the gumline. No erythema, fluctuation or induration of the gumline or inner cheek. No tenderness over the parotid. No skin changes, erythema, warmth fluctuance to the cheek. Mild tenderness over the right maxillary sinus. No pain with touch of the trigeminal nerve. No trismus. Patient tolerating secretions and speaking in full sentences. NECK: Supple. CHEST: Clear to auscultation. No respiratory distress. HEART: Regular rate and rhythm. No murmur heard. Normal peripheral pulses. EXTREMITIES: Normal range of motion. No edema. SKIN: Warm, dry, no rash. NEURO: No focal deficits. Alert and oriented x4. Cranial nerves 2-12 intact. Course Vital Signs Vital signs: Vital Signs Respiratory Rate 20 08/14/24 14:33 Pulse Oximetry 99 08/14/24 14:33 Temperature 98.1 F 08/14/24 14:49 Pulse Rate 82 08/14/24 14:49 Respiratory Rate 20 08/14/24 14:49 Blood Pressure 137/87 08/14/24 14:49 Pulse Oximetry 98 08/14/24 14:49 Medical Decision Making MDM Narrative Medical decision making narrative: 38-year-old male presents emergency department for right facial pain since 9:00 p.m. last night. No injury or trauma. Vitals are stable. Patient is afebrile nontoxic appearing. Differential diagnosis includes sinusitis, dental caries, dental abscess, trigeminal neuralgia. Patient's exam is remarkable for tenderness over the right maxillary sinus and a chronic dental fracture to the right upper molar. No evidence of dental abscess or deep space infection. Patient is tolerating secretions. No overlying skin changes or palpable mass. Neurologic exam is reassuring, presentation is not consistent with trigeminal neuralgia. Will trial the patient on Augmentin to cover dental infection versus sinusitis and have him follow-up closely with his dentist and PCP. He was given IM Toradol for pain advised to continue naproxen home. Discussed return precautions. He is agreeable with the plan verbalized understanding. Discharged in stable condition. Vital Signs Vital Signs: Vital Signs Respiratory Rate 20 06/07/25 14:33 Pulse Oximetry 99 06/07/25 14:33 Temperature 98.1 F 08/14/24 14:49 Pulse Rate 82 08/14/24 14:49 Respiratory Rate 20 08/14/24 14:49 Blood Pressure 137/87 08/14/24 14:49 Pulse Oximetry 98 08/14/24 14:49 Discharge Plan Discharge Clinical Impression: Facial pain Patient Disposition: Home Condition: Stable Instructions: Antibiotic Form Additional Instructions: You were evaluated in the emergency department for pain your gums and face. Your exam is largely reassuring. He did have mild tenderness over your sinus and you were found have a fractured molar. These may be contributing to her pain. I started you on antibiotics to cover any infection including sinusitis or dental infection. Please take these as directed. Continue taking her naproxen as prescribed. Follow-up with your dentist and primary care. Return to the emergency department if you develop any difficulty breathing or swallowing, facial swelling, fever, or other concerning symptoms. Patient Language: Yakut Prescriptions: New amoxicillin-pot clavulanate 875-125 mg tablet 1 tablet PO Q12H Qty: 14 0RF No Action pantoprazole 40 mg tablet,delayed release (DR/EC) 40 mg PO QAM Qty: 90 1RF methylphenidate HCl 27 mg tablet extended release 24hr 27 mg PO QAM Qty: 30 0RF Rx Instructions: June methylphenidate HCl 27 mg tablet extended release 24hr 27 mg PO QAM Qty: 30 0RF Rx Instructions: July methylphenidate HCl 27 mg tablet extended release 24hr 27 mg PO QAM Qty: 30 0RF Rx Instructions: August naproxen 500 mg tablet See Rx Instructions .ROUTE .COMPLEX Qty: 60 2RF Dose Instruction: Take 1 tablet by mouth twice daily as needed for pain Rx Instructions: Take 1 tablet by mouth twice daily as needed for pain gabapentin 100 mg capsule See Rx Instructions .ROUTE .COMPLEX Qty: 60 1RF Dose Instruction: TAKE 1 CAPSULE BY MOUTH TWICE DAILY. START THE FIRST WEEK ONCE DAILY AT BEDTIME. Rx Instructions: TAKE 1 CAPSULE BY MOUTH TWICE DAILY. START THE FIRST WEEK ONCE DAILY AT BEDTIME. Follow-up/Referrals: Silvio Shell MD [Primary Care Provider] -
[2024-08-14] MEDS: AMOXICILLIN/CLAVULANATE K 875-125 MG TAB 1 TABLET PO (14:30)
[2024-08-14] MEDS: KETOROLAC 30 MG/ML VIAL (*BKC) IM (14:30)
[2024-08-14 14:33] VITALS: RESP 20; O2SAT 99
[2024-08-14 14:48] VITALS: BP 137/87; PULSE 82; RESP 20; TEMP 36.7; O2SAT 98
[2024-08-14 14:49] VITALS: BP 137/87; PULSE 82; RESP 20; TEMP 36.7; O2SAT 98
== END 2024-08-14 14:50 | disposition home or self-care (01) ==
LOC: ANHED 14:37
PROVIDERS: Emergency Provider Physician Assistant; PCP Family Medicine
DX: R51.9 Headache, unspecified (principal); I10 Essential (primary) hypertension; E66.9 Obesity, unspecified; Z68.43 Body mass index [BMI] 50.0-59.9, adult; G47.33 Obstructive sleep apnea (adult) (pediatric); Z87.891 Personal history of nicotine dependence
CPT/HCPCS: 96372; 99283; A9270; J1885

== ENCOUNTER 2024-11-12 17:15 | Emergency (ER) | payer OTHER, SELFPAY ==
[2024-11-12 17:24] VITALS: BP 154/106; PULSE 78; RESP 20; TEMP 36.4; O2SAT 98
--- NOTE | 2024-11-12 19:44 | ED_ITS ---
HPI - Headache General Chief Complaint: Headache Stated Complaint: sinus, headache, tooth ache Time Seen by Provider: 11/12/24 18:38 History of Present Illness HPI Narrative: Patient is a 39-year-old male who presents to the ER with complaints of a right-sided sinus infection. He reports symptoms started couple days ago. Patient denies any fevers, cough, sore throat. He reports he has been taking Tylenol and ibuprofen at home for pain control. Patient reports he had a sinus infection approximately 1 month ago and was treated with antibiotics. He denies any other medical history relevant to this ER visit. Related Data Allergies Allergy/AdvReac Type Severity Reaction Status Date / Time No Known Allergies Allergy Verified 11/12/24 17:16 Review of Systems Review of Systems: All systems reviewed & are unremarkable except as noted in HPI and below PMFSH Family History Family History Father Family history of mental disorder Hypertension Family history of osteoarthritis Family history of elevated blood lipids Family history of cardiovascular disease Family history of hypothyroidism Grandparent Depression Hypertension Family history of elevated blood lipids Family history of cardiovascular disease Family history of liver disease Family history of arthritis Family history of chronic obstructive pulmonary disease Mother Hypertension Social History Social History Smoking status: Former smoker Alcohol intake: never Lack of Transportation: No Lack of Food: Never True Current Housing: I Have Housing Concerned About Future Housing: No Difficulty Paying Gas/Electric Bills: No Difficulty Paying for Meds: No Currently Unemployed: No Education: High School Diploma/GED Difficulty w/ Childcare or Family Care: No Exam Narrative: GENERAL: Well appearing, obese, non-toxic, in no acute distress. HEAD: Normocephalic, atraumatic. NECK: Supple. No adenopathy, no masses. RESPIRATORY: Airway patent, respirations nonlabored. Clear to auscultation bilaterally, no rales, rhonchi, wheezing. CARDIOVASCULAR: Regular rate and rhythm without murmurs, rubs, or gallops. Peripheral pulses 2+ and equal bilaterally. ABDOMINAL: Soft, nontender, nondistended, no hepatosplenomegaly. Normoactive BS. MUSCULOSKELETAL: Moves all extremities. Strength/ROM intact without gross deformities. SKIN: Warm, dry, normal color. No rashes. NEURO: A&O X3. Speech clear. Cranial nerves II-XII intact. No ataxic movements. PSYCHIATRIC: Appropriate mood and affect. Normal interaction. Course Vital Signs Vital signs: Vital Signs Temperature 36.4 C 11/12/24 17:24 Pulse Rate 78 11/12/24 17:24 Respiratory Rate 20 11/12/24 17:24 Blood Pressure 154/106 H 11/12/24 17:24 Pulse Oximetry 98 11/12/24 17:24 Oxygen Delivery Room Air 11/12/24 17:24 Temperature 36.4 C 11/12/24 17:24 Pulse Rate 78 11/12/24 17:24 Respiratory Rate 20 11/12/24 17:24 Blood Pressure 154/106 H 11/12/24 17:24 Pulse Oximetry 98 11/12/24 17:24 Oxygen Delivery Room Air 11/12/24 17:24 MDM - Headache MDM Narrative Medical decision making narrative: Patient is a 39-year-old male who presents to the ER with complaints of a right-sided sinus infection. He reports symptoms started couple days ago. Patient denies any fevers, cough, sore throat. He reports he has been taking Tylenol and ibuprofen at home for pain control. Patient reports he had a sinus infection approximately 1 month ago and was treated with antibiotics. He denies any other medical history relevant to this ER visit. Patient will be given a dose of Toradol IM and prednisone p.o. here in the ER. He will be discharged home with a prescription for steroids, Flonase, and anti- inflammatories. Patient strongly advised to maintain hydration status upon discharge. He was revived with strict return precautions. Vital signs stable at time of discharge. All questions answered. Differential Diagnosis Differential diagnosis: Likely tension headache, headache and sinusitis Discharge Plan Discharge Clinical Impression: Sinusitis Patient Disposition: Home Condition: Stable Instructions: Antibiotic Form, Sinusitis (ED) Additional Instructions: Please return to the ER with any worsening symptoms. Follow-up with primary care provider in the next 2-3 days. Take all medications as prescribed, including regularly scheduled medications. Remember to drink lots of water. You may take Tylenol and/or ibuprofen for pain control. Patient Language: Greenlandic Prescriptions: New methylprednisolone [Medrol (Abram)] 4 mg tablets,dose pack See Rx Instructions PO .COMPLEX Qty: 21 0RF Rx Instructions: for 6 days fluticasone propionate [Flonase Allergy Relief] 50 mcg/actuation spray,suspension 2 spray intranasal DAILY Qty: 16 0RF Rx Instructions: administer into each nostril No Action amoxicillin-pot clavulanate 875-125 mg tablet 1 tablet PO Q12H Qty: 14 0RF pantoprazole 40 mg tablet,delayed release (DR/EC) 40 mg PO QAM Qty: 90 1RF naproxen 500 mg tablet See Rx Instructions .ROUTE .COMPLEX Qty: 60 2RF Dose Instruction: Take 1 tablet by mouth twice daily as needed for pain Rx Instructions: Take 1 tablet by mouth twice daily as needed for pain gabapentin 100 mg capsule See Rx Instructions .ROUTE .COMPLEX Qty: 60 1RF Dose Instruction: TAKE 1 CAPSULE BY MOUTH TWICE DAILY. START THE FIRST WEEK ONCE DAILY AT BEDTIME. Rx Instructions: TAKE 1 CAPSULE BY MOUTH TWICE DAILY. START THE FIRST WEEK ONCE DAILY AT BEDTIME. methylphenidate HCl 27 mg tablet extended release 24hr 27 mg PO QAM Qty: 30 0RF Rx Instructions: October methylphenidate HCl 27 mg tablet extended release 24hr 27 mg PO QAM Qty: 30 0RF Rx Instructions: November methylphenidate HCl 27 mg tablet extended release 24hr 27 mg PO QAM Qty: 30 0RF Rx Instructions: December Follow-up/Referrals: Silvio Shell MD [Primary Care Provider, Family Practice] Stand Alone Forms: Work/School Release IP Time of Disposition: 19:51
[2024-11-12] MEDS: KETOROLAC (*BKC) 60 MG/2 ML VIAL IM (20:13)
[2024-11-12] MEDS: predniSONE 40 MG, predniSONE 10 MG 50 MG PO (20:13)
[2024-11-12 20:43] VITALS: BP 148/92; PULSE 76; RESP 20; TEMP 36.7; O2SAT 98
== END 2024-11-12 20:45 | disposition home or self-care (01) ==
PROVIDERS: Emergency Provider Registered Nurse; PCP Family Medicine
DX: J32.9 Chronic sinusitis, unspecified (principal); Z87.891 Personal history of nicotine dependence
CPT/HCPCS: 96372; 99283; J1885; J7512

== ENCOUNTER 2024-12-08 06:35 | Emergency (ER) | payer OTHER, SELFPAY ==
--- NOTE | ~2024-12-08 | CT_ITS ---
CTA CHEST CT ABDOMEN PELVIS CLINICAL HISTORY: CP, lightheaded, epigastric pain . COMPARISON: None TECHNIQUE: Helical CT performed from thoracic inlet to symphysis pubis IV contrast information not in PACS Coronal, sagittal reformats. Multiplanar MIPS CT images acquired with automatic exposure control for dose reduction DLP: 2800 mGy-cm FINDINGS: CHEST- Respiratory motion artifact. Thoracic Aorta: No dissection. No aneurysm. Pulmonary arteries: Suboptimal opacification. No PE identified. Lungs/Pleura: Subtle dependent changes. Heart: Unremarkable. Tracheobronchial tree: Patent. Nodes: No enlarged nodes. Bones: No acute bony abnormality. Small sternal medullary lucency without cortical disruption. Soft tissues: Unremarkable. ABDOMEN/PELVIS- Liver: Steatosis. Gallbladder: Unremarkable. Spleen: Unremarkable. Pancreas: Unremarkable. Adrenal glands: Unremarkable. Kidneys: Right kidney- No hydronephrosis. No renal stones. Left kidney- No hydronephrosis. No renal stones. Distal esophagus/stomach: Unremarkable. Small bowel loops: Normal caliber and wall thickness. Colon: Diverticula. Normal caliber and wall thickness. Normal RLQ appendix. Nodes: No enlarged nodes. Peritoneum: No ascites. No free air. Urinary bladder: Unremarkable. Prostate: Unremarkable. Bones: No acute bony abnormality. Soft tissues: Unremarkable. Abdominal aorta: Unremarkable. IVC: Unremarkable. Main portal vein, SMV: Patent. IMPRESSION: CHEST- 1. No PE identified. 2. No other acute cardiopulmonary abnormality. 3. Small indeterminate sternal lesion, probably benign unless known history of malignancy. Consider bone scan. ABDOMEN/PELVIS- 1. No acute abdominopelvic findings. Reviewed, dictated and finalized at location R.
--- NOTE | ~2024-12-08 | XR_ITS ---
EXAMINATION: XR chest 2V, 12/08/2024 8:10 CDT HISTORY: cp COMPARISON: No comparisons available. Technique: 2 views obtained. Findings: The lungs are clear, no effusion. No pneumothorax. Heart is normal size. Mediastinal and hilar contours are within normal limits. Bony thorax no acute abnormality. Impression: No acute cardiopulmonary abnormality. Reviewed, dictated and finalized at location P. Impression: No acute cardiopulmonary abnormality.
--- NOTE | 2024-12-08 06:36 | ECG_ITS ---
Test Date: 2024-12-08 06:38:20 Measurements Intervals [place] Rate: 95 P: 14 CA: 200 QRS: 9 QRSD: 103 T: 14 QT: 290 QTc: 365 Interpretive Statements SINUS RHYTHM BORDERLINE AV CONDUCTION DELAY EARLY PRECORDIAL R/S TRANSITION BORDERLINE ST-T WAVE ABNORMALITY- ANTERIOR LEADS BASELINE ARTIFACT- I, II, III, AVR, AVL, AVF, V1-V6 BORDERLINE ECG No previous ECG available for comparison Electronically Signed On 12-08-2024 07:56:45 CDT by Jose Adamson D.O.
[2024-12-08 06:37] VITALS: BP 163/95; PULSE 96; RESP 15; TEMP 36.5; O2SAT 99
[2024-12-08] MEDS: ASPIRIN 81 MG CHEWABLE TABLET 324 MG PO (06:43)
[2024-12-08 06:50] LABS: Hematocrit 47.0 % (42.0-52.0); Hemoglobin 14.8 g/dL (14.0-18.0); Immature Granulocyte Percent A 0.3 % (0-0.5); Lymphocytes Absolute Auto 2.18 K/mm3 (0.9-3.2); Mean Corpuscular HGB Conc 31.5 g/dl (32-36); Mean Corpuscular Hemoglobin 29.2 pg (26-34); Mean Corpuscular Volume 92.7 fl (80-100); Nucleated Red Blood Cells Absolute Auto 0.000 K/mm3 (0.0-0.012); Nucleated Red Blood Cells Perc 0.0 % (0.0-0.2); Platelet Count Result 249 k/mm3 (150-375); Red Blood Count 5.07 M/mm3 (4.6-6.20); White Blood Count 7.0 K/mm3 (4.5-10.0)
[2024-12-08 07:01] LABS: INR 0.9; Partial Thromboplastin Time 27.0 Seconds (22.3-36.8); Prothrombin Time 12.3 Seconds (11.1-14.7)
[2024-12-08 07:03] LABS: Alanine Aminotransferase 40 U/L (6-50); Albumin Level 4.6 g/dL (3.5-5.1); Alkaline Phosphatase 73 U/L (38-126); Anion Gap 10 mmol/L (4-12); Aspartate Amino Transferase 32 U/L (17-59); Bilirubin,Total 0.5 mg/dL (0.2-1.3); Blood Urea Nitrogen 13 mg/dL (9-20); Calcium 9.2 mg/dL (8.4-10.2); Carbon Dioxide 27 mmol/L (22-30); Chloride 102 mmol/L (98-107); Estimated CRCL calculation 160 ml/min; Estimated Glomerular Filt Rate > 60; Glucose 106 mg/dL (65-110); Lipase 47 U/L (23-300); Potassium 4.1 mmol/L (3.4-5.0); Sodium 139 mmol/L (137-145); Total Protein 8.3 g/dL (6.3-8.2)
[2024-12-08 07:15] LABS: Troponin I < 0.012 ng/mL (0.000-0.034)
--- NOTE | 2024-12-08 07:18 | ED_ITS ---
HPI - General Adult General Chief complaint: Chest Pain Stated complaint: burning chest pain Time Seen by Provider: 12/08/24 06:54 History of Present Illness HPI narrative: Year old male presents emergency department for evaluation after having epigastric pain lightheaded dizziness. Patient was at work when he started to feel some lightheadedness. Patient states he began developing some epigastric pain. Patient reports when he took a deep breath the pain worsened. Patient does work here at [employer] and a rapid response was called after a co- worker found him in discomfort. Upon arrival to the emergency department patient states the pain has resolved. Patient reports he does still have some epigastric tenderness to palpation. Patient states he has had upper respiratory infection for the last few days. Patient denies any prior cardiac history. Related Data Allergies Allergy/AdvReac Type Severity Reaction Status Date / Time No Known Allergies Allergy Verified 12/08/24 06:39 Review of Systems 2 Review of Systems: All systems reviewed & are unremarkable except as noted in HPI and below PMFSH Family History Family History Father Family history of mental disorder Hypertension Family history of osteoarthritis Family history of elevated blood lipids Family history of cardiovascular disease Family history of hypothyroidism Grandparent Depression Hypertension Family history of elevated blood lipids Family history of cardiovascular disease Family history of liver disease Family history of arthritis Family history of chronic obstructive pulmonary disease Mother Hypertension Social History Social History Smoking status: Former smoker Alcohol intake: never Lack of Transportation: No Lack of Food: Never True Current Housing: I Have Housing Concerned About Future Housing: No Difficulty Paying Gas/Electric Bills: No Difficulty Paying for Meds: No Currently Unemployed: No Education: High School Diploma/GED Difficulty w/ Childcare or Family Care: No Exam 2 Narrative: APPEARANCE: Well appearing, no pain, no distress, well-nourished. HEAD: normocephalic, atraumatic. EYES: PERRLA/EOMI, conjunctivae clear. NOSE: Normal no drainage EARS:TMS clear with good light reflex. THROAT: Pharynx clear, no exudate. NECK: Supple. No adenopathy, no masses. RESPIRATORY: Airway patent, respirations nonlabored. Clear to auscultation bilaterally, no rales, rhonchi, wheezing. CARDIOVASCULAR: Regular rate and rhythm without murmurs rubs or gallops. ABDOMINAL: No tenderness to palpation, normal bowel sounds MUSCULOSKELETAL: Moves all extremities. Strength/ROM intact, No edema, No calf tenderness. NEURO: Alert. Cranial nerves II through XII intact. Good gait. Good coordination SKIN: Warm, dry. Normal Color Course Vital Signs Vital signs: Vital Signs Temperature 97.7 F 12/08/24 06:37 Pulse Rate 96 12/08/24 06:37 Respiratory Rate 15 12/08/24 06:37 Blood Pressure 163/95 H 12/08/24 06:37 Pulse Oximetry 99 12/08/24 06:37 Oxygen Delivery Room Air 12/08/24 06:37 Temperature 97.7 F 12/08/24 06:37 Pulse Rate 78 12/08/24 10:13 Respiratory Rate 20 12/08/24 10:13 Blood Pressure 133/99 H 12/08/24 10:13 Pulse Oximetry 98 12/08/24 10:13 Oxygen Delivery Room Air 12/08/24 07:11 Medical Decision Making [facility] Narrative Medical decision making narrative: 39-year-old male present emergency department for evaluation for episode of near-syncope and epigastric pain. Patient states pain was short lasting and did not radiate. Upon arrival emergency department patient's pain was resolved. Patient is currently afebrile with no leukocytosis hemoglobin 14.8. INR was 0.9. Patient has no acute abnormalities on his CMP including a negative lipase. Patient had negative serial troponins. patient was negative for influenza RSV and for COVID. Chest x-ray shows no acute cardiopulmonary abnormality. CTA was ordered and was negative for pulmonary embolism. EKG shows normal sinus rhythm patient was able to ambulate at his baseline. All questions concerns were addressed patient was discharged home. Low concern for ACS with negative workup and low risk factors. No evidence of pulmonary embolism. Differential Diagnosis Differential Diagnosis: Pancreatitis, gastritis, colitis, diverticulitis, ACS, dissection, pulmonary embolism, pneumonia, pneumothorax Vital Signs Vital Signs: Vital Signs Temperature 97.7 F 12/08/24 06:37 Pulse Rate 96 12/08/24 06:37 Respiratory Rate 15 12/08/24 06:37 Blood Pressure 163/95 H 12/08/24 06:37 Pulse Oximetry 99 12/08/24 06:37 Oxygen Delivery Room Air 12/08/24 06:37 Temperature 97.7 F 12/08/24 06:37 Pulse Rate 78 12/08/24 10:13 Respiratory Rate 20 12/08/24 10:13 Blood Pressure 133/99 H 12/08/24 10:13 Pulse Oximetry 98 12/08/24 10:13 Oxygen Delivery Room Air 12/08/24 07:11 Lab Data Lab results reviewed: Yes I reviewed the patient's lab results. 12/08/24 06:41 12/08/24 06:41 Labs: Lab Results 12/08/24 12/08/24 12/08/24 Range/Units 06:41 07:38 09:42 WBC 7.0 (4.5-10.0) K/mm3 RBC 5.07 (4.6-6.20) M/mm3 Hgb 14.8 (14.0-18.0) g/dL Hct 47.0 (42.0-52.0) % MCV 92.7 (80-100) fl MCH 29.2 (26-34) pg MCHC 31.5 L (32-36) g/dl RDW 12.3 (11.5-14.5) % Plt Count 249 (150-375) k/mm3 MPV 10.6 H (7.4-10.4) fl Immature Gran % (Auto) 0.3 (0-0.5) % Neut % (Auto) 53.2 (45.5-73.1) % Lymph % (Auto) 31.3 (18.3-44.2) % [place] % (Auto) 12.5 H (2.6-8.5) % Eos % (Auto) 2.4 (0-4.4) % Baso % (Auto) 0.3 (0.2-1.2) % Lymph # (Auto) 2.18 (0.9-3.2) K/mm3 [place] # (Auto) 0.9 H (0.1-0.6) K/mm3 Eos # (Auto) 0.2 (0-0.3) K/mm3 Baso # (Auto) 0.0 (0.0-0.1) K/mm3 Abs Immat Gran (auto) 0.02 (0.00-0.031) K/mm3 Absolute Neuts (auto) 3.7 (1.3-6.7) K/mm3 Absolute Nucleated RBC 0.000 (0.0-0.012) K/mm3 Nucleated RBC % 0.0 (0.0-0.2) % PT 12.3 (11.1-14.7) Seconds INR 0.9 APTT 27.0 (22.3-36.8) Seconds Sodium 139 (137-145) mmol/L Potassium 4.1 (3.4-5.0) mmol/L Chloride 102 (98-107) mmol/L Carbon Dioxide 27 (22-30) mmol/L Anion Gap 10 (4-12) mmol/L BUN 13 (9-20) mg/dL Creatinine 0.92 (0.7-1.3) mg/dL Estim Creat Clear Calc 160 ml/min Estimated GFR > 60 (59 - ) Glucose 106 (65-110) mg/dL Calcium 9.2 (8.4-10.2) mg/dL Total Bilirubin 0.5 (0.2-1.3) mg/dL AST 32 (17-59) U/L ALT 40 (6-50) U/L Alkaline Phosphatase 73 (38-126) U/L Troponin I < 0.012 < 0.012 (0.000-0.034) ng/mL Total Protein 8.3 H (6.3-8.2) g/dL Albumin 4.6 (3.5-5.1) g/dL Lipase 47 (23-300) U/L Influenza A (RT-PCR) Negative (Negative) Influenza B (RT-PCR) Negative (Negative) RSV (RT-PCR) Negative (Negative) SARS-CoV-2 RNA (RT-PCR) Negative (Negative) Imaging Data My impression: Chest x-ray: No acute cardiopulmonary abnormality Radiologist's impression: Impressions Chest/Abdomen/Pelvis CTA 12/08/24 07:35 IMPRESSION: CHEST- 1. No PE identified. 2. No other acute cardiopulmonary abnormality. 3. Small indeterminate sternal lesion, probably benign unless known history of malignancy. Consider bone scan. ABDOMEN/PELVIS- 1. No acute abdominopelvic findings. Chest X-Ray 12/08/24 08:16 Impression: No acute cardiopulmonary abnormality. ECG Data EKG #1: EKG Interpretation: normal rate, sinus rhythm, no ectopy, non-specific ST changes, RBBB and no acute changes Discharge Plan Discharge Clinical Impression: Abdominal pain, epigastric Patient Disposition: Home Condition: Stable Instructions: Antibiotic Form, Chest Pain (ED), Abdominal Pain (ED) Additional Instructions: have close follow-up with your primary care physician for additional outpatient testing. If you have any worsening symptoms then please call or return to the emergency department. Patient Language: Portuguese Prescriptions: No Action amoxicillin-pot clavulanate 875-125 mg tablet 1 tablet PO Q12H Qty: 14 0RF methylprednisolone [Medrol (Abram)] 4 mg tablets,dose pack See Rx Instructions PO .COMPLEX Qty: 21 0RF Rx Instructions: for 6 days fluticasone propionate [Flonase Allergy Relief] 50 mcg/actuation spray,suspension 2 spray intranasal DAILY Qty: 16 0RF Rx Instructions: administer into each nostril naproxen 500 mg tablet See Rx Instructions .ROUTE .COMPLEX Qty: 60 2RF Dose Instruction: Take 1 tablet by mouth twice daily as needed for pain Rx Instructions: Take 1 tablet by mouth twice daily as needed for pain gabapentin 100 mg capsule See Rx Instructions .ROUTE .COMPLEX Qty: 60 1RF Dose Instruction: TAKE 1 CAPSULE BY MOUTH TWICE DAILY. START THE FIRST WEEK ONCE DAILY AT BEDTIME. Rx Instructions: TAKE 1 CAPSULE BY MOUTH TWICE DAILY. START THE FIRST WEEK ONCE DAILY AT BEDTIME. methylphenidate HCl 27 mg tablet extended release 24hr 27 mg PO QAM Qty: 30 0RF Rx Instructions: October methylphenidate HCl 27 mg tablet extended release 24hr 27 mg PO QAM Qty: 30 0RF Rx Instructions: November methylphenidate HCl 27 mg tablet extended release 24hr 27 mg PO QAM Qty: 30 0RF Rx Instructions: December pantoprazole 40 mg tablet,delayed release (DR/EC) 40 mg PO QAM Qty: 90 1RF Follow-up/Referrals: Silvio Shell MD [Primary Care Provider, Family Practice] Stand Alone Forms: Work/School Release IP
[2024-12-08] MEDS: PANTOPRAZOLE SODIUM IV 40 MG VIAL IV PUSH (07:39)
[2024-12-08] MEDS: BELLADONNA ALK/PHENOB ELIX 10 ML, MAG HYDROX/ALUMINUM HYD/SIMETH 30 ML, LIDOCAINE 2% VI... PO (07:39)
[2024-12-08 08:15] VITALS: BP 135/102; PULSE 82; RESP 13; O2SAT 97
[2024-12-08 08:18] LABS: Influenza A QL RT-PCR Negative (Negative); Influenza B QL RT-PCR Negative (Negative); RSV RNA, RT-PCR Negative (Negative); SARS-CoV-2 RNA PCR Negative (Negative)
--- NOTE | 2024-12-08 09:16 | ECG_ITS ---
Test Date: 2024-12-08 09:36:45 Measurements Intervals [place] Rate: 62 P: 18 SD: 176 QRS: 8 QRSD: 121 T: 23 QT: 356 QTc: 362 Interpretive Statements SINUS RHYTHM INCOMPLETE RIGHT BUNDLE BRANCH BLOCK BASELINE ARTIFACT- I, III, AVL, V2 BORDERLINE ECG Compared to ECG 12/08/2024 06:38:20 NO SIGNIFICANT CHANGE Electronically Signed On 12-08-2024 11:02:14 CDT by Jose Adamson D.O.
[2024-12-08 10:11] LABS: Troponin I < 0.012 ng/mL (0.000-0.034)
[2024-12-08 10:13] VITALS: BP 133/99; PULSE 78; RESP 20; O2SAT 98
== END 2024-12-08 10:54 | disposition home or self-care (01) ==
PROVIDERS: Student in an Organized Health Care Education/Training Program; Emergency Provider Emergency Medicine; PCP Family Medicine
DX: R10.13 Epigastric pain (principal); Z20.822 Contact with and (suspected) exposure to COVID-19; Z87.891 Personal history of nicotine dependence; R94.31 Abnormal electrocardiogram [ECG] [EKG]; I45.10 Unspecified right bundle-branch block
CPT/HCPCS: 36415; 71046; 71275; 74177; 80053; 83690; 84484; 85025; 85610; 85730; 87637; 93005; 96374; 99284; A9270; J2470; Q9967